=== PATIENT | female | born 1960 | race Caucasian/White ===

== ENCOUNTER 2017-06-11 20:34 | Emergency (ER) | payer SELFPAY ==
[2017-06-11] MEDS: oxyCODONE/APAP 5/325 1 TAB TABLET PO (20:59)
[2017-06-11] MEDS: CLINDAMYCIN IM 600 MG/4 ML VIAL. IM (21:00)
== END 2017-06-11 21:35 | disposition home or self-care (01) ==
LOC: ER 20:34
DX: K04.7 Periapical abscess without sinus (principal); F12.10 Cannabis abuse, uncomplicated
CPT/HCPCS: 96372; 99283; J3490

== ENCOUNTER 2017-08-09 08:55 | Emergency (ER) | payer SELFPAY ==
[2017-08-09 09:55] LABS: ADD MAN DIFF? NO
[2017-08-09 10:04] LABS: BASO # 0.1 x10^3/uL (0.0-0.2); BASO % 1 % (0-3); EOS # 0.1 x10^3/uL (0.0-0.7); EOS % 1 % (0-3); HEMATOCRIT 42.7 % (36.0-47.0); HEMOGLOBIN 15.2 g/dL (12.0-15.5); LYMPH # 1.2 x10^3/uL (1.0-4.8); LYMPH % 15 % (24-48); MEAN CORPUSCULAR HEMOGLOBIN 33 pg (25-35); MEAN CORPUSCULAR HGB CONC 36 g/dL (31-37); MEAN CORPUSCULAR VOLUME 94 fL (79-100); MONO # 0.5 x10^3/uL (0.0-1.1); MONO % 6 % (0-9); NEUT # 6.2 x10^3uL (1.8-7.7); NEUT % 77 % (31-73); PLATELET COUNT 291 x10^3/uL (140-400); RED BLOOD COUNT 4.56 x10^6/uL (3.50-5.40); RED CELL DISTRIBUTION WIDTH 12.6 % (11.5-14.5); WHITE BLOOD COUNT 8.1 x10^3/uL (4.0-11.0)
[2017-08-09 10:11] LABS: BASE EXCESS ABG 2 mmol/L (-3-3); HCO3 ABG 26 mmol/L (21-28); PCO2 ABG 37 mmHg (35-46); PH ABG 7.46 (7.35-7.45); PO2 ABG 73 mmHg (75-108); SAT O2 ABG 95 % (92-99)
[2017-08-09 10:14] LABS: FIO2 ABG 21
[2017-08-09 10:21] LABS: PARTIAL THROMBOPLASTIN TIME 27 SEC (24-38)
[2017-08-09 10:28] LABS: ALBUMIN 3.8 g/dL (3.4-5.0); ALK PHOS 119 U/L (46-116); ALT (SGPT) 13 U/L (14-59); AST (SGOT) 11 U/L (15-37); DIRECT BILIRUBIN 0.1 mg/dL (0.0-0.2); TOTAL BILIRUBIN 0.5 mg/dL (0.2-1.0); TOTAL PROTEIN 7.7 g/dL (6.4-8.2)
[2017-08-09 10:31] LABS: ACETAMIN < 2 mcg/ml (10-30); ETHANOL < 10 mg/dL (0-10); SALIC 5.5 mg/dL (2.8-20.0)
[2017-08-09 11:12] LABS: ANION GAP 8 (6-14); BLOOD UREA NITROGEN 15 mg/dL (7-20); CALCIUM 9.3 mg/dL (8.5-10.1); CARBON DIOXIDE 24 mmol/L (21-32); CHLORIDE 102 mmol/L (98-107); CREATININE 0.7 mg/dL (0.6-1.0); GFR 86.6; GLUCOSE 121 mg/dL (70-99); POTASSIUM 3.6 mmol/L (3.5-5.1); SODIUM 134 mmol/L (136-145)
[2017-08-09 12:58] LABS: BILIRUBIN,URINE NEGATIVE (NEG); CLARITY,URINE CLEAR; COLOR,URINE AMBER; GLUCOSE,URINE NEGATIVE (NEG); NITRITE,URINE POSITIVE (NEG); PROTEIN,URINE NEGATIVE (NEG-TRACE); UROBILINOGEN,URINE 0.2 mg/dL (0.2 mg/dL)
[2017-08-09 13:06] LABS: BARBITURATES NEG (NEG); BENZODIAZEPINES NEG (NEG); CANNABINOIDS NEG (NEG); COCAINE NEG (NEG); METHADONE NEG (NEG); OPIATES NEG (NEG); PHENCYCLIDINE NEG (NEG)
[2017-08-09 13:10] LABS: AMPHETAMINE/METHAMPHETAMINE NEG (NEG); ETHANOL, URINE NEG (NEG)
[2017-08-09 13:23] LABS: BACTERIA,URINE MANY /HPF (0-FEW); HYALINE CASTS, URINE OCCASIONAL /HPF; RBC,URINE 0 /HPF (0-2); SQUAMOUS EPITHELIAL CELL,UR MOD /LPF
[2017-08-09 14:53] LABS: AGAP ISTAT 17 mmol/L (6-14); BUN ISTAT 11 mg/dL (8-26); CHLORIDE ISTAT 101 mmol/L (98-110); CREATININE ISTAT 0.7 mg/dL (0.5-1.4); GLUCOSE ISTAT 170 mg/dL (70-99); HEMATOCRIT ISTAT 43 % (36-40); HEMOGLOBIN ISTAT 14.6 g/dL (12-15); ION CA ISTAT 1.14 mmol/L (1.13-1.32); POTASSIUM ISTAT 3.6 mmol/L (3.5-5.0); SODIUM ISTAT 137 mmol/L (135-145); TOT CO2 ISTAT 23 mmol/L (23-32)
== END 2017-08-09 17:15 ==
LOC: ER 08:55
DX: R45.851 Suicidal ideations (principal); F10.129 Alcohol abuse with intoxication, unspecified; F12.10 Cannabis abuse, uncomplicated
CPT/HCPCS: 36415; 36600; 80047; 80048; 80076; 80307; 80329; 81001; 82805; 83735; 83930; 85025; 85610; 85730; 87086; 93005; 99285-25; G0480; G6039

== ENCOUNTER 2017-08-13 19:50 | Inpatient (IN) | payer SELFPAY ==
[2017-08-13 20:19] LABS: POC GLUCOSE 170 mg/dL (70-99)
[2017-08-13 20:46] LABS: BILIRUBIN,URINE NEGATIVE (NEG); CLARITY,URINE CLEAR; COLOR,URINE YELLOW; GLUCOSE,URINE NEGATIVE (NEG); NITRITE,URINE NEGATIVE (NEG); PROTEIN,URINE NEGATIVE (NEG-TRACE); UROBILINOGEN,URINE 0.2 mg/dL (0.2 mg/dL)
[2017-08-13 20:54] LABS: BARBITURATES NEG (NEG); BENZODIAZEPINES NEG (NEG); CANNABINOIDS NEG (NEG); COCAINE NEG (NEG); METHADONE NEG (NEG); OPIATES NEG (NEG); PHENCYCLIDINE NEG (NEG)
[2017-08-13 20:55] LABS: AMPHETAMINE/METHAMPHETAMINE NEG (NEG); ETHANOL, URINE NEG (NEG)
[2017-08-13 21:02] LABS: AMORPHOUS SEDIMENT,UR PRESENT /HPF; BACTERIA,URINE FEW /HPF (0-FEW); WBC,URINE 0 /HPF (0-4)
[2017-08-13 21:32] LABS: BASO # 0.2 x10^3/uL (0.0-0.2); BASO % 0 % (0-3); EOS % 0 % (0-3); HEMATOCRIT 49.8 % (36.0-47.0); HEMOGLOBIN 16.3 g/dL (12.0-15.5); LYMPH # 1.3 x10^3/uL (1.0-4.8); LYMPH % 3 % (24-48); MEAN CORPUSCULAR HEMOGLOBIN 33 pg (25-35); MEAN CORPUSCULAR HGB CONC 33 g/dL (31-37); MEAN CORPUSCULAR VOLUME 100 fL (79-100); MONO # 2.2 x10^3/uL (0.0-1.1); MONO % 6 % (0-9); NEUT % 91 % (31-73); PLATELET COUNT 334 x10^3/uL (140-400); RED BLOOD COUNT 4.98 x10^6/uL (3.50-5.40); RED CELL DISTRIBUTION WIDTH 13.6 % (11.5-14.5)
[2017-08-13 21:34] LABS: ADD MAN DIFF? YES; WHITE BLOOD COUNT 40.7 x10^3/uL (4.0-11.0)
[2017-08-13] MEDS ORDERED: cefTRIAXone SODIUM 2 GM in IV DEXTROSE 5% 100ML 100 ML IV (21:45)
[2017-08-13] MEDS ORDERED: AMPICILLIN SODIUM 2 GM in IV NORMAL SALINE 100ML 100 ML IV (21:45)
[2017-08-13] MEDS ORDERED: LIDOCAINE 2% 20 ML VIAL. (21:56)
[2017-08-13] MEDS: IV NORMAL SALINE 1000ML BAG 1,000 ML IV ×2 (22:00)
[2017-08-13] MEDS: LIDOCAINE 2% 20 ML VIAL. IJ (22:00)
[2017-08-13] MEDS: AMPICILLIN SODIUM IV Push 2 GM VIAL. IVP (22:00)
[2017-08-13] MEDS: cefTRIAXone IV Push 2 GM VIAL. IVP (22:00)
[2017-08-13 22:08] LABS: % BANDS 11 % (0-9); % LYMPHS 3 % (24-48); % MONOS 5 % (0-10); % SEGS 81 % (35-66); PLT ESTIMATE ADEQUATE (ADEQUATE)
[2017-08-13 22:11] LABS: ACETAMIN < 2 mcg/ml (10-30); ETHANOL < 10 mg/dL (0-10); SALIC 5.6 mg/dL (2.8-20.0)
[2017-08-13 22:13] LABS: ALBUMIN 4.5 g/dL (3.4-5.0); ALK PHOS 122 U/L (46-116); ALT (SGPT) 18 U/L (14-59); AST (SGOT) 15 U/L (15-37); BLOOD UREA NITROGEN 10 mg/dL (7-20); BUN/CREATININE RATIO 13 (6-20); CALCIUM 10.2 mg/dL (8.5-10.1); CHLORIDE 107 mmol/L (98-107); CREATININE 0.8 mg/dL (0.6-1.0); GFR 74.2; GLUCOSE 121 mg/dL (70-99); POTASSIUM 4.5 mmol/L (3.5-5.1); SODIUM 140 mmol/L (136-145); TOTAL BILIRUBIN 0.2 mg/dL (0.2-1.0)
[2017-08-13] MEDS: VANCOMYCIN 1.5 GM in IV 1/2 NORMAL SALINE 500 ML IV (22:15)
[2017-08-13 22:19] LABS: CARBON DIOXIDE < 5 mmol/L (21-32)
[2017-08-13 22:25] LABS: BASE EXCESS ABG -25 mmol/L (-3-3); CORRECTED PO2 ABG 117 mmHg; HCO3 ABG 3 mmol/L (21-28); SAT O2 ABG 98 % (92-99)
[2017-08-13 22:26] LABS: CORRECTED PCO2 ABG 10 mmHg; PH ABG 7.06 (7.35-7.45)
[2017-08-13 22:27] LABS: PCO2 ABG 12 mmHg (35-46); PO2 ABG 135 mmHg (75-108)
[2017-08-13 22:31] LABS: CSF GLUCOSE 101 mg/dL (37-70)
[2017-08-13 22:31] LABS: CSF PROTEIN 32.3 mg/dL (15.0-45.0)
[2017-08-13] MEDS: SODIUM BICARB ADULT 8.4% 50 MEQ/50 ML DISP.SYRIN. IV (22:35)
[2017-08-13 22:50] LABS: CSF CLARITY CLEAR; CSF COLOR COLORLESS; CSF RBC COUNT 1; CSF WBC COUNT 1
[2017-08-13] MEDS: SODIUM BICARBONATE VIAL 50 MEQ in IV 1/2 NORMAL SALINE 1,000 ML IV (22:50)
[2017-08-13] MEDS: NORMAL SALINE IV (22:50)
[2017-08-13] MEDS: FOMEPIZOLE IV (22:50)
[2017-08-14] MEDS: PYRIDOXINE 100 MG/ML VIAL. IV (00:08)
[2017-08-14] MEDS: MAGNESIUM SULFATE 1GM 100 ML IV (00:09)
[2017-08-14] MEDS ORDERED: HEPARIN for IV BOLUS 10,000 UNIT/10 ML VIAL. (00:28)
[2017-08-14] MEDS ORDERED: DIALYSIS PATIENT. MC ×2 (00:45)
[2017-08-14] MEDS: LIDOCAINE WITH 8.4% SOD BICARB 3 ML DISP.SYRIN. INJ (01:24)
[2017-08-14] MEDS: THIAMINE 100 MG in IV DEXTROSE 5% 50 ML IV ×4 (01:41→18:05)
[2017-08-14] MEDS: VANCOMYCIN PER PHARMACY MC ×2 (02:45→16:01)
[2017-08-14 06:07] LABS: ALBUMIN/GLOBULIN RATIO 0.9 (1.0-1.7); ALK PHOS 98 U/L (46-116); ALT (SGPT) 12 U/L (14-59); ANION GAP 15 (6-14); AST (SGOT) 16 U/L (15-37); BLOOD UREA NITROGEN 5 mg/dL (7-20); BUN/CREATININE RATIO 6 (6-20); CALCIUM 8.4 mg/dL (8.5-10.1); CARBON DIOXIDE 23 mmol/L (21-32); CHLORIDE 104 mmol/L (98-107); CREATININE 0.8 mg/dL (0.6-1.0); GFR 74.2; GLUCOSE 115 mg/dL (70-99); POTASSIUM 3.2 mmol/L (3.5-5.1); SODIUM 142 mmol/L (136-145); TOTAL BILIRUBIN 0.6 mg/dL (0.2-1.0); TOTAL PROTEIN 6.4 g/dL (6.4-8.2)
[2017-08-14] MEDS: SODIUM BICARBONATE VIAL 50 MEQ in IV 1/2 NORMAL SALINE 1,000 ML IV ×3 (06:21→16:51)
[2017-08-14 06:51] LABS: ADD MAN DIFF? NO
[2017-08-14 07:09] LABS: BASO # 0.1 x10^3/uL (0.0-0.2); BASO % 0 % (0-3); EOS % 0 % (0-3); HEMATOCRIT 38.7 % (36.0-47.0); HEMOGLOBIN 13.2 g/dL (12.0-15.5); LYMPH # 0.8 x10^3/uL (1.0-4.8); LYMPH % 3 % (24-48); MEAN CORPUSCULAR HEMOGLOBIN 32 pg (25-35); MEAN CORPUSCULAR HGB CONC 34 g/dL (31-37); MEAN CORPUSCULAR VOLUME 94 fL (79-100); MONO % 4 % (0-9); NEUT # 25.5 x10^3uL (1.8-7.7); NEUT % 93 % (31-73); PLATELET COUNT 238 x10^3/uL (140-400); RED BLOOD COUNT 4.12 x10^6/uL (3.50-5.40); RED CELL DISTRIBUTION WIDTH 12.4 % (11.5-14.5); WHITE BLOOD COUNT 27.4 x10^3/uL (4.0-11.0)
[2017-08-14 08:25] LABS: MISCELLANEOUS SEE SEPARATE REPORT
[2017-08-14 09:19] LABS: HEPATITIS B SURFACE AG Nonreactive (Nonreactive)
[2017-08-14 09:30] LABS: HEPATITIS B SURFACE AB Reactive
[2017-08-14] MEDS: VANCOMYCIN 750 MG in IV NORMAL SALINE 250ML 250 ML IV ×2 (09:36→22:24)
[2017-08-14] MEDS ORDERED: DOCUSATE SODIUM 100 MG CAPSULE. PO (09:45)
[2017-08-14] MEDS ORDERED: ONDANSETRON PF 4 MG/2 ML VIAL. IV (09:45)
[2017-08-14] MEDS ORDERED: MORPHINE SULFATE 2 MG/ML DISP.SYRIN. IV (09:45)
[2017-08-14] MEDS ORDERED: hydrALAZINE 20 MG/ML VIAL. IVP (09:45)
[2017-08-14] MEDS: POTASSIUM CHLORIDE 20 MEQ TABLET.ER. PO (10:10)
[2017-08-14] MEDS ORDERED: FOMEPIZOLE IV (11:00)
[2017-08-14] MEDS ORDERED: NORMAL SALINE IV (11:00)
[2017-08-14] MEDS: ACETAMINOPHEN 325 MG TABLET. PO (14:13)
[2017-08-14] MEDS: ENOXAPARIN 40 MG/0.4 ML SYRINGE. SQ (14:17)
[2017-08-14] MEDS ORDERED: IV NORMAL SALINE 500ML BAG 500 ML IV (14:45)
[2017-08-14] MEDS: IV NORMAL SALINE 1000ML BAG 1,000 ML IV (15:11)
[2017-08-14] MEDS: LACTOBACILLUS RHAMNOSUS GG 1 CAPSULE. PO (22:19)
[2017-08-14] MEDS: cefTRIAXone IV Push 2 GM VIAL. IVP (22:19)
[2017-08-15] MEDS: THIAMINE 100 MG in IV DEXTROSE 5% 50 ML IV ×4 (02:37→16:48)
[2017-08-15] MEDS: SODIUM BICARBONATE VIAL 50 MEQ in IV 1/2 NORMAL SALINE 1,000 ML IV ×3 (03:14→20:42)
[2017-08-15] MEDS: traMADol 50 MG TABLET PO (03:30)
[2017-08-15 07:30] LABS: ADD MAN DIFF? NO
[2017-08-15 07:38] LABS: BASO # 0.1 x10^3/uL (0.0-0.2); BASO % 1 % (0-3); EOS % 0 % (0-3); HEMATOCRIT 31.8 % (36.0-47.0); HEMOGLOBIN 11.2 g/dL (12.0-15.5); LYMPH # 1.7 x10^3/uL (1.0-4.8); LYMPH % 17 % (24-48); MEAN CORPUSCULAR HEMOGLOBIN 33 pg (25-35); MEAN CORPUSCULAR HGB CONC 35 g/dL (31-37); MEAN CORPUSCULAR VOLUME 94 fL (79-100); MONO # 0.9 x10^3/uL (0.0-1.1); MONO % 9 % (0-9); NEUT # 7.3 x10^3uL (1.8-7.7); NEUT % 73 % (31-73); PLATELET COUNT 181 x10^3/uL (140-400); RED CELL DISTRIBUTION WIDTH 12.6 % (11.5-14.5)
[2017-08-15 07:51] LABS: ANION GAP 7 (6-14); BLOOD UREA NITROGEN 12 mg/dL (7-20); CALCIUM 7.7 mg/dL (8.5-10.1); CARBON DIOXIDE 26 mmol/L (21-32); CHLORIDE 109 mmol/L (98-107); CREATININE 1.9 mg/dL (0.6-1.0); GFR 27.3; GLUCOSE 100 mg/dL (70-99); POTASSIUM 3.1 mmol/L (3.5-5.1); SODIUM 142 mmol/L (136-145)
[2017-08-15] MEDS: LACTOBACILLUS RHAMNOSUS GG 1 CAPSULE. PO ×2 (08:43→20:42)
[2017-08-15] MEDS: SERTRALINE 50 MG TABLET. PO (08:43)
[2017-08-15] MEDS: ACETAMINOPHEN 325 MG TABLET. PO ×2 (08:43→16:47)
[2017-08-15] MEDS: POTASSIUM CHLORIDE 20 MEQ TABLET.ER. PO (08:44)
[2017-08-15] MEDS: VANCOMYCIN 750 MG in IV NORMAL SALINE 250ML 250 ML IV (08:45)
[2017-08-15] MEDS: VANCOMYCIN PER PHARMACY MC (12:06)
[2017-08-15] MEDS: ENOXAPARIN 40 MG/0.4 ML SYRINGE. SQ (12:10)
[2017-08-15] MEDS: cefTRIAXone IV Push 2 GM VIAL. IVP (22:14)
[2017-08-16] MEDS: THIAMINE 100 MG in IV DEXTROSE 5% 50 ML IV ×4 (00:13→16:44)
[2017-08-16 04:47] LABS: ANION GAP 5 (6-14); BLOOD UREA NITROGEN 18 mg/dL (7-20); CALCIUM 7.8 mg/dL (8.5-10.1); CARBON DIOXIDE 28 mmol/L (21-32); CHLORIDE 107 mmol/L (98-107); CREATININE 2.2 mg/dL (0.6-1.0); GFR 23.1; GLUCOSE 92 mg/dL (70-99); MAGNESIUM 1.7 mg/dL (1.8-2.4); POTASSIUM 3.5 mmol/L (3.5-5.1); SODIUM 140 mmol/L (136-145)
[2017-08-16] MEDS: SODIUM BICARBONATE VIAL 50 MEQ in IV 1/2 NORMAL SALINE 1,000 ML IV ×3 (05:08→22:35)
[2017-08-16] MEDS: LACTOBACILLUS RHAMNOSUS GG 1 CAPSULE. PO ×2 (08:50→20:47)
[2017-08-16] MEDS: SERTRALINE 50 MG TABLET. PO (08:50)
[2017-08-16] MEDS ORDERED: MAGNESIUM SULFATE 2GM 50 ML IV (12:00)
[2017-08-16] MEDS: ENOXAPARIN 40 MG/0.4 ML SYRINGE. SQ (12:44)
[2017-08-16] MEDS: MAGNESIUM SULFATE 1GM 100 ML IV (13:19)
[2017-08-17 05:30] LABS: ANION GAP 9 (6-14); BLOOD UREA NITROGEN 20 mg/dL (7-20); CALCIUM 7.6 mg/dL (8.5-10.1); CARBON DIOXIDE 27 mmol/L (21-32); CHLORIDE 106 mmol/L (98-107); CREATININE 2.3 mg/dL (0.6-1.0); GFR 21.9; GLUCOSE 82 mg/dL (70-99); PHOSPHORUS 4.1 mg/dL (2.6-4.7); POTASSIUM 3.1 mmol/L (3.5-5.1); SODIUM 142 mmol/L (136-145)
[2017-08-17] MEDS: SODIUM BICARBONATE VIAL 50 MEQ in IV 1/2 NORMAL SALINE 1,000 ML IV ×2 (07:05→17:11)
[2017-08-17] MEDS: THIAMINE 100 MG TABLET. PO (08:26)
[2017-08-17] MEDS: SERTRALINE 50 MG TABLET. PO (08:26)
[2017-08-17] MEDS: LACTOBACILLUS RHAMNOSUS GG 1 CAPSULE. PO ×2 (08:26→20:37)
[2017-08-17] MEDS: ENOXAPARIN 30 MG/0.3 ML SYRINGE. SQ (13:00)
[2017-08-17] MEDS: POTASSIUM CHLORIDE 20 MEQ TABLET.ER. PO (15:34)
[2017-08-18] MEDS: SODIUM BICARBONATE VIAL 50 MEQ in IV 1/2 NORMAL SALINE 1,000 ML IV ×3 (01:28→18:11)
[2017-08-18 07:41] LABS: ALBUMIN 2.4 g/dL (3.4-5.0); ANION GAP 13 (6-14); BLOOD UREA NITROGEN 19 mg/dL (7-20); CALCIUM 7.6 mg/dL (8.5-10.1); CARBON DIOXIDE 26 mmol/L (21-32); CHLORIDE 104 mmol/L (98-107); CREATININE 2.1 mg/dL (0.6-1.0); GFR 24.4; GLUCOSE 68 mg/dL (70-99); MAGNESIUM 1.9 mg/dL (1.8-2.4); PHOSPHORUS 4.2 mg/dL (2.6-4.7); POTASSIUM 3.3 mmol/L (3.5-5.1); SODIUM 143 mmol/L (136-145)
[2017-08-18] MEDS: SERTRALINE 50 MG TABLET. PO (08:42)
[2017-08-18] MEDS: LACTOBACILLUS RHAMNOSUS GG 1 CAPSULE. PO ×2 (08:42→20:29)
[2017-08-18] MEDS: THIAMINE 100 MG TABLET. PO (08:42)
[2017-08-18] MEDS: ENOXAPARIN 30 MG/0.3 ML SYRINGE. SQ (13:00)
[2017-08-19] MEDS: SODIUM BICARBONATE VIAL 50 MEQ in IV 1/2 NORMAL SALINE 1,000 ML IV (02:35)
[2017-08-19 07:56] LABS: ANION GAP 14 (6-14); BLOOD UREA NITROGEN 21 mg/dL (7-20); CALCIUM 7.6 mg/dL (8.5-10.1); CARBON DIOXIDE 26 mmol/L (21-32); CHLORIDE 103 mmol/L (98-107); CREATININE 2.1 mg/dL (0.6-1.0); GFR 24.4; GLUCOSE 66 mg/dL (70-99); POTASSIUM 3.2 mmol/L (3.5-5.1); SODIUM 143 mmol/L (136-145)
[2017-08-19] MEDS: LACTOBACILLUS RHAMNOSUS GG 1 CAPSULE. PO (07:57)
[2017-08-19] MEDS: SERTRALINE 50 MG TABLET. PO (07:57)
[2017-08-19] MEDS: THIAMINE 100 MG TABLET. PO (07:57)
[2017-08-19] MEDS: POTASSIUM CHLORIDE 20 MEQ TABLET.ER. PO (11:00)
== END 2017-08-19 15:10 | disposition home or self-care (01) | DRG 917 ==
LOC: 6 SOUTH 08-14 19:19 → ER 19:50 → 1 WEST ICU 22:00
PROC: 5A1D70Z Performance of Urinary Filtration, Intermittent, Less than 6 Hours Per Day (ICD-10-PCS; principal; 2017-08-14)
PROC: 02HV33Z Insertion of Infusion Device into Superior Vena Cava, Percutaneous Approach (ICD-10-PCS; 2017-08-14)
PROC: B548ZZA Ultrasonography of Superior Vena Cava, Guidance (ICD-10-PCS; 2017-08-14)
DX: T51.8X1A Toxic effect of other alcohols, accidental (unintentional), initial encounter (principal); G92 Toxic encephalopathy; N17.9 Acute kidney failure, unspecified; E87.2 Acidosis; R45.851 Suicidal ideations; I10 Essential (primary) hypertension; D72.828 Other elevated white blood cell count; E87.6 Hypokalemia; F10.20 Alcohol dependence, uncomplicated; F12.10 Cannabis abuse, uncomplicated; F17.200 Nicotine dependence, unspecified, uncomplicated; F32.9 Major depressive disorder, single episode, unspecified; J44.9 Chronic obstructive pulmonary disease, unspecified; F41.9 Anxiety disorder, unspecified; F12.90 Cannabis use, unspecified, uncomplicated; Z96.641 Presence of right artificial hip joint; Z96.659 Presence of unspecified artificial knee joint; Z63.8 Other specified problems related to primary support group; Z80.9 Family history of malignant neoplasm, unspecified; Z91.410 Personal history of adult physical and sexual abuse; Z91.411 Personal history of adult psychological abuse; Z91.5 Personal history of self-harm; Z99.2 Dependence on renal dialysis; Z98.51 Tubal ligation status
CPT/HCPCS: 36415; 36556; 70450; 71045; 76937; 80048; 80053; 80069; 80307; 80329; 81001; 82805; 82945; 82962; 83605; 83735; 83930; 84100; 84157; 85007; 85025; 86704; 86706; 87040; 87071; 87075; 87340; 89051; 93005; 96361; 96365; 96366; 96368; 96375; 97110-GP; 97116-GP; 97162-GP; 97166-GO; 99285; 99285-25; 99406; A4215; C1892; G0480; G6039; J0290; J0696; J1451; J1650; J2001; J3370; J3415; J3475; J7030; J7050

== ENCOUNTER 2017-09-03 17:11 | Inpatient (IN) | payer SELFPAY ==
[2017-09-03 18:10] LABS: BASO % 0 % (0-3); EOS # 0.1 x10^3/uL (0.0-0.7); EOS % 1 % (0-3); HEMOGLOBIN 12.9 g/dL (12.0-15.5); LYMPH # 0.7 x10^3/uL (1.0-4.8); LYMPH % 5 % (24-48); MEAN CORPUSCULAR HEMOGLOBIN 32 pg (25-35); MEAN CORPUSCULAR HGB CONC 35 g/dL (31-37); MEAN CORPUSCULAR VOLUME 91 fL (79-100); MONO # 0.5 x10^3/uL (0.0-1.1); MONO % 4 % (0-9); NEUT % 90 % (31-73); PLATELET COUNT 300 x10^3/uL (140-400); RED BLOOD COUNT 4.06 x10^6/uL (3.50-5.40); RED CELL DISTRIBUTION WIDTH 12.8 % (11.5-14.5); WHITE BLOOD COUNT 13.3 x10^3/uL (4.0-11.0)
[2017-09-03 18:11] LABS: ADD MAN DIFF? YES
[2017-09-03 18:25] LABS: ACETAMIN < 2 mcg/ml (10-30); ETHANOL < 10 mg/dL (0-10); SALIC 7.8 mg/dL (2.8-20.0)
[2017-09-03 18:26] LABS: % BANDS 2 % (0-9); % BASOS 1 % (0-3); % LYMPHS 5 % (24-48); % MONOS 2 % (0-10); % SEGS 90 % (35-66); ALBUMIN 3.8 g/dL (3.4-5.0); ALBUMIN/GLOBULIN RATIO 0.9 (1.0-1.7); ALK PHOS 103 U/L (46-116); ALT (SGPT) 14 U/L (14-59); ANION GAP 11 (6-14); AST (SGOT) 11 U/L (15-37); BLOOD UREA NITROGEN 23 mg/dL (7-20); BUN/CREATININE RATIO 14 (6-20); CALCIUM 9.1 mg/dL (8.5-10.1); CARBON DIOXIDE 27 mmol/L (21-32); CHLORIDE 101 mmol/L (98-107); CREATININE 1.7 mg/dL (0.6-1.0); GFR 31.1; GLUCOSE 134 mg/dL (70-99); PLT ESTIMATE ADEQUATE (ADEQUATE); SODIUM 139 mmol/L (136-145); TOTAL BILIRUBIN 0.5 mg/dL (0.2-1.0); TOXIC GRANULATION SLIGHT
[2017-09-03 18:28] LABS: POTASSIUM 2.6 mmol/L (3.5-5.1)
[2017-09-03] MEDS ORDERED: POTASSIUM CHLORIDE 20MEQ 50 ML IV (18:30)
[2017-09-03] MEDS: IV NORMAL SALINE 1000ML BAG 1,000 ML IV ×2 (18:30→21:13)
[2017-09-03] MEDS: POTASSIUM CHLORIDE 10MEQ 100 ML IV ×2 (18:47→20:00)
[2017-09-03] MEDS ORDERED: ONDANSETRON PF 4 MG/2 ML VIAL. IV (20:15)
[2017-09-03 20:54] LABS: BILIRUBIN,URINE NEGATIVE (NEG); CLARITY,URINE CLEAR; COLOR,URINE YELLOW; GLUCOSE,URINE NEGATIVE (NEG); NITRITE,URINE NEGATIVE (NEG); PH,URINE 7.5; PROTEIN,URINE 100 mg/dL (NEG-TRACE); UROBILINOGEN,URINE 0.2 mg/dL (0.2 mg/dL)
[2017-09-03 21:02] LABS: AMPHETAMINE/METHAMPHETAMINE NEG (NEG); BACTERIA,URINE MODERATE /HPF (0-FEW); BARBITURATES NEG (NEG); BENZODIAZEPINES NEG (NEG); CANNABINOIDS NEG (NEG); COCAINE NEG (NEG); ETHANOL, URINE NEG (NEG); METHADONE NEG (NEG); OPIATES NEG (NEG); PHENCYCLIDINE NEG (NEG); RBC,URINE 0 /HPF (0-2); SQUAMOUS EPITHELIAL CELL,UR FEW /LPF
[2017-09-04 04:14] LABS: ADD MAN DIFF? NO
[2017-09-04 04:16] LABS: BASO # 0.1 x10^3/uL (0.0-0.2); BASO % 1 % (0-3); EOS # 0.3 x10^3/uL (0.0-0.7); EOS % 3 % (0-3); HEMOGLOBIN 11.1 g/dL (12.0-15.5); LYMPH # 1.6 x10^3/uL (1.0-4.8); LYMPH % 19 % (24-48); MEAN CORPUSCULAR HEMOGLOBIN 33 pg (25-35); MEAN CORPUSCULAR HGB CONC 36 g/dL (31-37); MEAN CORPUSCULAR VOLUME 91 fL (79-100); MONO # 0.8 x10^3/uL (0.0-1.1); MONO % 9 % (0-9); NEUT # 5.8 x10^3uL (1.8-7.7); NEUT % 68 % (31-73); PLATELET COUNT 255 x10^3/uL (140-400); RED BLOOD COUNT 3.39 x10^6/uL (3.50-5.40); RED CELL DISTRIBUTION WIDTH 12.8 % (11.5-14.5); WHITE BLOOD COUNT 8.6 x10^3/uL (4.0-11.0)
[2017-09-04 04:33] LABS: ANION GAP 10 (6-14); BLOOD UREA NITROGEN 25 mg/dL (7-20); CALCIUM 8.2 mg/dL (8.5-10.1); CARBON DIOXIDE 24 mmol/L (21-32); CHLORIDE 106 mmol/L (98-107); CREATININE 1.7 mg/dL (0.6-1.0); GFR 31.1; GLUCOSE 98 mg/dL (70-99); SODIUM 140 mmol/L (136-145)
[2017-09-04 04:38] LABS: POTASSIUM 2.7 mmol/L (3.5-5.1)
[2017-09-04] MEDS: IV NORMAL SALINE 1000ML BAG 1,000 ML IV ×2 (04:54→11:55)
[2017-09-04] MEDS: POTASSIUM CHLORIDE 20 MEQ TABLET.ER. PO (05:10)
[2017-09-05 11:01] LABS: ANION GAP 10 (6-14); BLOOD UREA NITROGEN 19 mg/dL (7-20); CALCIUM 8.4 mg/dL (8.5-10.1); CARBON DIOXIDE 22 mmol/L (21-32); CHLORIDE 106 mmol/L (98-107); CREATININE 1.5 mg/dL (0.6-1.0); GFR 35.9; GLUCOSE 96 mg/dL (70-99); SODIUM 138 mmol/L (136-145)
[2017-09-05] MEDS: POTASSIUM CHLORIDE 20 MEQ TABLET.ER. PO (16:59)
[2017-09-05 19:18] LABS: SODIUM, URINE 77 mmol/L (Not Estab.); UR POTASSIUM 14.5 mmol/L (Not Estab.)
[2017-09-06 07:28] LABS: ANION GAP 7 (6-14); BLOOD UREA NITROGEN 17 mg/dL (7-20); CALCIUM 8.5 mg/dL (8.5-10.1); CARBON DIOXIDE 27 mmol/L (21-32); CHLORIDE 108 mmol/L (98-107); CREATININE 1.3 mg/dL (0.6-1.0); GFR 42.4; GLUCOSE 98 mg/dL (70-99); MAGNESIUM 1.6 mg/dL (1.8-2.4); SODIUM 142 mmol/L (136-145)
[2017-09-06] MEDS: POTASSIUM CHLORIDE 20 MEQ TABLET.ER. PO (13:05)
== END 2017-09-06 15:36 | DRG 918 ==
LOC: 6 SOUTH 20:50 → ER 17:11 → 6 SOUTH 19:49
DX: T43.212A Poisoning by selective serotonin and norepinephrine reuptake inhibitors, intentional self-harm, initial encounter (principal); N17.9 Acute kidney failure, unspecified; R45.851 Suicidal ideations; T45.0X2A Poisoning by antiallergic and antiemetic drugs, intentional self-harm, initial encounter; T43.222A Poisoning by selective serotonin reuptake inhibitors, intentional self-harm, initial encounter; E87.6 Hypokalemia; F41.9 Anxiety disorder, unspecified; F32.9 Major depressive disorder, single episode, unspecified; Z96.649 Presence of unspecified artificial hip joint; F17.200 Nicotine dependence, unspecified, uncomplicated; F10.20 Alcohol dependence, uncomplicated; D72.829 Elevated white blood cell count, unspecified; D64.9 Anemia, unspecified; Z96.659 Presence of unspecified artificial knee joint; Y92.89 Other specified places as the place of occurrence of the external cause; Z91.5 Personal history of self-harm; Z98.51 Tubal ligation status; Z83.3 Family history of diabetes mellitus
CPT/HCPCS: 36415; 76770; 80048; 80053; 80307; 80329; 81001; 82436; 83735; 84133; 84300; 85007; 85025; 87086; 87186; 93005; 96365; 99285; 99285-25; G0480; G6039; J3480; J7030